=== PATIENT | female | born 1980 | race Caucasian/White ===

== ENCOUNTER 2018-08-25 18:01 | Inpatient (IN) | payer OTHER ==
[~2018-08-25 18:01] MED LIST: ISOVUE-370 76%-LOCM 1 ML ONE
[2018-08-25 19:11] LABS: BHCG - Serum Negative (NEGATIVE); Pregs Control Background? CLEAR/WHITE (CLR/WHITE); Pregs Control Bar Appear? YES (CONTROL BAR)
[2018-08-25] MEDS ORDERED: Fentanyl 100 MCG/2 ML VIAL ONE (19:40)
--- NOTE | 2018-08-25 19:42 | CT ---
CT Abdomen Pelvis W Con: 08/25/2018 6:30 PM CLINICAL INFORMATION: Ascites build up and jaundice COMPARISON: None. TECHNIQUE: Multiple contiguous axial images were obtained and a CT of the abdomen and pelvis with IV contrast. C oronal reformats were performed. FINDINGS: Lower Chest: within normal limits. Abdomen: Liver: within normal limits. No intrahepatic biliary dilatation. Bile Ducts: Normal caliber. Gallbladder: No calcified gallstones. Normal caliber wall. Fluid is seen adjacent to the gallbladder which likely represents ascites. Pancreas: within normal limits. Spleen: within normal limits. Adrenals: within normal limits. Kidneys: within normal limits. Pelvis: Reproductive Organs: No pelvic masses. Ureters: within normal limits. Bladder: within normal limits. Peritoneum: A moderate amount of ascites is seen. No free air is identified. Bowel: Normal caliber. Normal appendix Mesentery and Retroperitoneum: No enlarged mesenteric or retroperitoneal lymph nodes. Vessels: Normal. Abdominal Wall: within normal limits. Bones: Within normal limits IMPRESSION: Moderate ascites
[2018-08-25 21:14] LABS: Bilirubin Large (Negative); Blood, Urine Negative (Negative); Clarity CLEAR (Clear); Glucose, Urine (Dipstick) Negative (Negative); Leukocyte Negative (Negative); Nitrite Negative (Negative); Protein, Urine (Dipstick) Negative (Neg-Trace); Urobilinogen 0.2 mg/dL (0.2-1.0); pH, Urine 6.5 (5.0-9.0)
[2018-08-25 21:20] LABS: Specific Gravity, Urine Greater than 1.060 (1.002-1.036)
[2018-08-25 22:08] VITALS: BMI 24.4
[2018-08-25] MEDS ORDERED: Acetaminophen 325 MG TAB PO PRN (22:14)
[2018-08-25] MEDS ORDERED: Ondansetron ODT 4 MG TAB SL PRN (22:14)
[2018-08-25] MEDS ORDERED: Sodium Chloride 0.9% 1,000 ML IV SCH (22:14)
[2018-08-25] MEDS ORDERED: Ondansetron PF 4 MG/2 ML Vial IVP PRN (22:14)
[2018-08-25] MEDS ORDERED: NS 0.9% w/ 40 MEQ KCL 1,000 ML IV SCH (23:45)
[2018-08-26 00:31] LABS: ALT (SGPT) 36 U/L (8-55); AST (SGOT) 191 U/L (5-34); Albumin 2.6 g/dL (3.5-5.0); Alkaline Phosphatase 129 U/L (40-150); Anion Gap 13 mmol/L (10-20); BUN (Urea Nitrogen) 6 mg/dL (7.0-18.7); Calc. Creatinine Clearance 157 mL/min (70-130); Calcium 7.2 mg/dL (7.8-10.44); Carbon Dioxide 22 mmol/L (22-29); Chloride 96 mmol/L (98-107); Estimated GFR-MDRD Greater than 90; Glucose 83 mg/dL (70-105); Magnesium 1.9 mg/dL (1.6-2.6); Sodium 127 mmol/L (136-145)
[2018-08-26 00:32] LABS: Acetaminophen Less than 6.0 mcg/mL (10.0-30.0); Anion Gap 12 mmol/L (10-20); Carbon Dioxide 22 mmol/L (22-29); Chloride 96 mmol/L (98-107); Sodium 126 mmol/L (136-145)
[2018-08-26 00:34] LABS: Phosphorus 1.1 mg/dL (2.3-4.7)
[2018-08-26] MEDS ORDERED: Potassium Phosphate 15 MMOL in Sodium Chloride 0.9% 250 ML 250 ML IVPB SCH (00:45)
[2018-08-26] MEDS ORDERED: Sodium Chloride 0.9% 1,000 ML IV SCH (00:45)
[2018-08-26] MEDS ORDERED: Ondansetron PF 4 MG/2 ML Vial IVP PRN (00:47)
[2018-08-26] MEDS ORDERED: Ondansetron ODT 4 MG TAB PO PRN (00:47)
[2018-08-26] MEDS ORDERED: Calcium Carbonate 500 MG ChewTAB PO PRN (00:47)
[2018-08-26 00:52] LABS: Bilirubin, Direct Greater than 10.0 mg/dL (0.1-0.3); HBCM Index 0.07 S/CO (0-0.79); HBSAg Index 0.26 S/CO (0-0.99); Hep A IgM AB Non-Reactive (NonReactive); Hep A IgM S/CO 0.23 S/CO (0-0.79); Hep B Surf Ag Non-Reactive S/CO (NonReactive); Hep C IgG Ab Non-Reactive (NonReactive); Hep C Index 0.18 S/CO (0-0.79); Hepatitis B Core IgM Abs Non-Reactive (NonReactive)
--- NOTE | 2018-08-26 01:31 | HP ---
CHIEF COMPLAINT: Abdominal distention. HISTORY OF PRESENT ILLNESS: The patient is a 38-year-old female with alcohol abuse who presented to the emergency room with the above complaint. Over the last 1 or 2 weeks, the patient noticed yellow discoloration of her eyes. She also noticed gradual worsening abdominal distention. Over the last 2 to 3 days, the patient has generalized abdominal pain. She had 1 episode of vomiting today. She has intermittent nausea. No diarrhea reported. She had subjective fever. She takes Aleve on a daily basis. She had 1 loose stool this morning. She denies any hematemesis, melena, or hematochezia. She denies any IV drug abuse. PAST MEDICAL HISTORY: 1. Recent E coli UTI, on Bactrim. 2. Chronic alcoholism. PAST SURGICAL HISTORY: section. ALLERGIES: NO KNOWN DRUG ALLERGIES. CURRENT HOME MEDICATIONS: The patient is currently on: 1. Bactrim for recent UTI. 2. Aleve as needed. SOCIAL HISTORY: The patient drinks whiskey on a daily basis. She used to drink vodka in the past. Over the last 1 year, she is drinking heavily. She also smokes one pack a day. She also abuses cannabis. FAMILY HISTORY: Father had AK at the age of 57. REVIEW OF SYSTEMS: All other review of systems were reviewed and were found negative. PHYSICAL EXAMINATION: VITAL SIGNS: Temperature 98.8, respirations 22, pulse rate of 109, and blood pressure 127/74, O2 saturation of 97% on room air. GENERAL: A 38-year-old female with jaundice. She continues to have mild generalized abdominal discomfort. HEENT: Head; atraumatic, normocephalic. Sclerae icteric. Moist mucous membranes. No oral lesion. NECK: Supple. No JVD appreciated. No carotid bruit. LUNGS: Showed diminished air entry at bilateral bases. No wheezing, rales, or rhonchi. HEART: S1 and S2 present. Regular rate and rhythm. No rubs or gallops appreciated. ABDOMEN: Distended. There is generalized tenderness. No rebound or guarding. No costovertebral angle tenderness. Shifting dullness noted. No masses or pulsation. EXTREMITIES: Trace edema in bilateral lower extremity. SKIN: Warm and dry. LYMPH NODES: No palpable lymph nodes in the neck. Peripheral vascular radial pulses palpable bilaterally. MUSCULOSKELETAL: No joint swelling or tenderness. DIAGNOSTIC DATA: EKG by my review showed sinus rhythm with nonspecific ST-T wave changes. LABORATORY DATA: WBC 10.0, hemoglobin 11.4 with MCV of 119, hematocrit 34.5, platelet count 176. PT of 16.4, INR 1.3, PTT 34.6. Chemistry showed sodium 126, potassium 2.8, chloride 90, bicarb 26, BUN of 7, creatinine 0.6. Lactic acid 2.4, total bilirubin 17 with AST of 203, ALT 41, albumin 2.8. test was negative. Troponin was negative. Ammonia 54. Lactic acid 2.0. Repeat urinalysis today was negative for wbc's or bacteria. Urine drug screen last week was positive for cannabinoids. CT scan of the abdomen by my review showed moderate ascites. Liver appeared normal. Bile duct had normal caliber. IMPRESSION: 1. Acute hepatitis, most likely secondary to chronic alcoholism. 2. Abdominal distention/discomfort secondary to moderate ascites. 3. Electrolyte abnormalities. The patient has hyponatremia and hypokalemia. 4. Lactic acidosis due to reduced intravascular volume. 5. Hypoalbuminemia secondary to chronic alcohol abuse (moderate protein-calorie malnutrition). 6. Coagulopathy secondary to alcoholism. 7. Macrocytic anemia probably secondary to alcohol abuse. 8. Polysubstance abuse. (Tobacco, cannabinoid, and alcohol). 9. Recent urinary tract infection. The patient is on Bactrim. Her urinalysis is negative for urinary tract infection this admission. PLAN: The patient will be monitored on the medical floor. We will start her on prednisolone due to elevated risk function. We will replace electrolytes. Gentle hydration. We will check acute hepatitis profile. We will check acetaminophen level. Alcohol level was negative. Alcohol withdrawal scale. We will consult Gastroenterology. Thiamine, folic acid, multivitamin. Monitor for alcohol withdrawal. Clear liquid diet. Vital signs q.4 hourly. Plan of care was discussed with the patient in detail. She stated understanding. Job ID: [id number]
[2018-08-26] MEDS ORDERED: traMADol HCl 50 MG TAB PO SCH (02:45)
[2018-08-26] MEDS: pyridOXINE 50 MG (B6) TAB PO SCH (08:44)
[2018-08-26] MEDS: Propranolol 10 MG TAB PO SCH ×3 (08:44→19:58)
[2018-08-26] MEDS: Cyanocobalamin (Vitamin B-12) 1,000 MCG TAB PO SCH (08:44)
[2018-08-26] MEDS: Thiamine 100 MG TAB PO SCH (08:45)
[2018-08-26] MEDS: Folic Acid 1 MG TAB PO SCH (08:45)
[2018-08-26] MEDS: prednisoLONE 10 MG ODT TAB PO SCH (08:45)
[2018-08-26] MEDS: Multivit, Therapeutic 1 TAB PO SCH (08:45)
[2018-08-26] MEDS ORDERED: Famotidine 20 MG TAB PO SCH (09:00)
[2018-08-26] MEDS: Nicotine 14 MG PATCH TOP PRN (12:31)
--- NOTE | 2018-08-26 14:05 | PDOC.PN ---
- Subjective Encounter Start Date: 08/26/18 Encounter Start Time: 14:03 Subjective: Patient with chronic alcohol abuse admitted with increasing abd distension -: nausea and vomiting have subsided. -: For paracentesis tomorrow - Objective Resuscitation Status - Order Detail: 08/26/18 00:47 Resuscitation Status Routine Resuscitation Status: FULL: Full Resuscitation Vital Signs & Weight: Vital Signs (12 hours) Temp Pulse Resp BP BP BP Pulse Ox 08/26/18 11:27 98.1 F 90 18 117/84 97 08/26/18 08:00 102/71 98 08/26/18 07:37 98.2 F 82 20 102/71 98 08/26/18 04:00 98.3 F 96 18 99/68 99/68 96 Weight Weight 146 lb 12.8 oz Result Diagrams: 08/26/18 00:01 Phys Exam - Physical Examination icteric HEENT: PERRLA, moist MMs jaundice noted Neck: supple Respiratory: no rhonchi, clear to auscultation bilateral Cardiovascular: RRR, no significant murmur Gastrointestinal: soft, positive bowel sounds enlarged/distended Musculoskeletal: no edema, pulses present Neurological: non-focal, moves all 4 limbs Psychiatric: A&O x 3 Dx/Plan (1) Alcoholic hepatitis with ascites Code(s): K70.11 - ALCOHOLIC HEPATITIS WITH ASCITES Status: Acute (2) Abdominal distension Code(s): R14.0 - ABDOMINAL DISTENSION (GASEOUS) Status: Acute (3) Hyponatremia Code(s): E87.1 - HYPO-OSMOLALITY AND HYPONATREMIA Status: Acute (4) Hypokalemia Code(s): E87.6 - HYPOKALEMIA Status: Acute (5) Hypoalbuminemia Code(s): E88.09 - OTH DISORDERS OF PLASMA-PROTEIN METABOLISM, NEC Status: Acute (6) Macrocytic anemia Code(s): D53.9 - NUTRITIONAL ANEMIA, UNSPECIFIED Status: Acute (7) Chronic alcohol abuse Code(s): F10.10 - ALCOHOL ABUSE, UNCOMPLICATED Status: Acute (8) Hypophosphatemia Code(s): E83.39 - OTHER DISORDERS OF PHOSPHORUS METABOLISM Status: Acute - Plan DC IVF fluid. -: [place] sodium poor diet encouraged. -: Monitor CMP -: For paracentesis tomorrow. -: Monitor electrolytes and replete as needed. * .
--- NOTE | 2018-08-26 17:00 | CON ---
DATE OF CONSULTATION: 08/26/2018 REASON FOR CONSULTATION: Acute hepatitis. HISTORY OF PRESENT ILLNESS: Carolann Momin is a 38-year-old woman, who was admitted to the hospital late last night with acute hepatitis, which appears to be secondary to alcohol. She reports no significant past medical history. She drinks alcohol quite heavily. She says she has a half a pint of whiskey or vodka every day and this has been her pattern for a long time. She says she drinks hard liquor every day because it is cheaper than beer. She also does smoke cigarettes and uses marijuana. She says her sister has some form of liver disease, which she thinks is secondary to alcohol. About a week and a half ago, she started having progressive abdominal distention with associated discomfort. She also noticed that she was becoming jaundiced. She had an episode of vomiting yesterday and that finally prompted her presentation. She was found to have ascites based on CT scan, mild coagulopathy with INR 1.3, and total bilirubin elevation to 17. She says that over the past week since symptoms started, she stopped all alcohol use. She did have a urine culture about 5 days ago, which showed an E coli UTI, but she completed a course of Bactrim and urinalysis is now negative. Her primary complaint at this point is some discomfort in the lower sternal area associated with the abdominal distention. PAST MEDICAL HISTORY: 1. Recent E coli UTI, finished course of Bactrim, now appears resolved. 2. Chronic alcohol abuse. 3. Tobacco abuse. 4. Marijuana abuse. PAST SURGICAL HISTORY: section. ALLERGIES: NO KNOWN DRUG ALLERGIES. HOME MEDICATIONS: 1. Aleve as needed. 2. Bactrim for recent UTI. SOCIAL HISTORY: The patient would drink half a pint of whiskey or vodka on a daily basis. She has been drinking quite heavily for a long time. She also smokes 1 pack a day. She also abuses cannabis. FAMILY HISTORY: Father had AK at age 57. She says her sister has liver problems. She thinks secondary to alcohol. REVIEW OF SYSTEMS: Full review of systems including constitutional; head, eyes, ears, nose, and throat; GI; ; cardiovascular; respiratory; musculoskeletal; and neurologic systems are negative except as noted in the HPI. PHYSICAL EXAMINATION: VITAL SIGNS: Temperature 98.1, pulse 90, blood pressure 117/84, and oxygen saturation 97% on room air. GENERAL: Jaundiced 38-year-old woman, lying in bed comfortably, in no distress. MENTAL: She is alert and oriented. She is pleasant, conversational. She can give details about her symptoms and recent history. SKIN: She is jaundiced. No rashes were palpable. EYES: Scleral icterus is apparent. Extraocular movements intact. ENT: Mucous membranes moist. No oral lesions. LYMPH: No submandibular or supraclavicular lymphadenopathy. THYROID: Nontender to palpation. HEART: Regular rate and rhythm. LUNGS: Clear to auscultation bilaterally. ABDOMEN: Distended with ascites, somewhat tense. Bowel sounds are present throughout. There is minimal tenderness to palpation of the abdomen throughout. No guarding or rebound tenderness. EXTREMITIES: No peripheral edema. VESSELS: Radial pulses 2+ bilaterally. NEURO: Cranial nerves II through XII intact bilaterally. No focal deficits. LABORATORY STUDIES: WBC 10, hemoglobin 11.4, platelets 176, and MCV elevated to 119. INR 1.3, PT 16.4. Sodium 126, potassium 4.0, BUN 6, creatinine 0.52, and glucose 83. Serum test negative. Ammonia is 84. Total bilirubin 17, direct bilirubin greater than 10, alkaline phosphatase normal at 129, AST elevated to 191 with a normal ALT of 36. Serum alcohol level is negative. Tylenol level is negative. Urinalysis is also negative, tested yesterday. IMAGING STUDIES: CT of the abdomen and pelvis demonstrates moderate ascites, otherwise normal exam with normal appearing liver, gallbladder, and bile ducts. Normal pancreas. No lymphadenopathy. ASSESSMENT AND PLAN: 1. Acute alcoholic hepatitis, severe. 2. Ascites, new onset. The patient's discriminant function calculates out to 32.6, which does make this a severe episode of alcoholic hepatitis. Prognosis is guarded to poor, depending on how she does over the next few days. We will expand the laboratory workup to include autoimmune markers, ceruloplasmin, and iron studies. Note, the negative viral hepatitis serologies. I do suspect this is all secondary to alcohol abuse. NSAIDs need to be stopped. Obviously, the most important thing for her going forward is going to be complete abstinence from alcohol and I emphasized the gravity of the situation to the patient. Need to trend CMP and INR daily. She has only a mild coagulopathy and preserved renal function at this time. However, if we start to see deterioration in lab values, this will portend a much poor prognosis. She also will need a diagnostic paracentesis and send fluid for cell count, differential, culture, and albumin. I agree with measures already taken including the steroids with prednisolone 40 mg daily. This will need to be continued for at least 28 days, depending on her clinical course, with a tapering course thereafter. Also, agree with the lactulose that has been initiated. She is not overtly encephalopathic at this time. Also, agree with ulcer prophylaxis with Protonix 40 mg daily, which has already been started. The patient can start with a low-sodium diet. Nutrition is going to be very important to her recovery, so I would also recommend nutritional supplementation with Ensure twice per day. The patient is probably not a transplant candidate secondary to acute alcoholic hepatitis and ongoing drug abuse. However, if she has clinical or laboratory deterioration over the next few days, we would certainly consider requesting transfer to a liver transplant center for further management evaluation. Thank you for the consultation. Please call anytime with questions or concerns. Job ID: [id number]
[2018-08-26] MEDS: Lorazepam 2 MG/ML VIAL SLOW IVP PRN (20:00)
[2018-08-27 07:56] LABS: INR-International Normal Ratio 1.4; Prothrombin Time 16.8 SEC (12.0-14.7)
[2018-08-27] MEDS: Folic Acid 1 MG TAB PO SCH (08:32)
[2018-08-27] MEDS: Multivit, Therapeutic 1 TAB PO SCH (08:32)
[2018-08-27] MEDS: Propranolol 10 MG TAB PO SCH ×3 (08:32→18:54)
[2018-08-27] MEDS: Thiamine 100 MG TAB PO SCH (08:32)
[2018-08-27] MEDS: pyridOXINE 50 MG (B6) TAB PO SCH (08:32)
[2018-08-27] MEDS: prednisoLONE 10 MG ODT TAB PO SCH (08:32)
[2018-08-27] MEDS: Cyanocobalamin (Vitamin B-12) 1,000 MCG TAB PO SCH (08:32)
[2018-08-27 09:00] LABS: ALT (SGPT) 46 U/L (8-55); AST (SGOT) 189 U/L (5-34); Albumin 2.7 g/dL (3.5-5.0); Alkaline Phosphatase 145 U/L (40-150); Anion Gap 10 mmol/L (10-20); BUN (Urea Nitrogen) 7 mg/dL (7.0-18.7); Bilirubin, Total 17.5 mg/dL (0.2-1.2); Calc. Creatinine Clearance 149 mL/min (70-130); Calcium 8.3 mg/dL (7.8-10.44); Carbon Dioxide 24 mmol/L (22-29); Chloride 95 mmol/L (98-107); Estimated GFR-MDRD Greater than 90; Globulin 2.9 g/dL (2.4-3.5); Glucose 70 mg/dL (70-105); Iron 98 ug/dL (50-170); Iron Binding Capacity, Total 148 mcg/dL (265-497); Magnesium 1.6 mg/dL (1.6-2.6); Phosphorus 1.5 mg/dL (2.3-4.7); Potassium 3.8 mmol/L (3.5-5.1); Protein, Total 5.6 g/dL (6.0-8.3); Sodium 125 mmol/L (136-145)
--- NOTE | 2018-08-27 10:48 | PRG ---
DATE OF SERVICE: 08/27/2018 SUBJECTIVE: Ms. Momin is feeling a bit better today. She says she has more energy and more appetite. We are awaiting ultrasound-guided paracentesis, I think set up for later today. No confusion. Minimal abdominal discomfort. Abdominal distention persists. OBJECTIVE: VITAL SIGNS: Temperature 97.9, pulse 82, blood pressure 101/74, and oxygen saturation 100% on room air. GENERAL: Jaundiced. No acute distress. HEART: Regular rate and rhythm. LUNGS: Clear to auscultation bilaterally. ABDOMEN: Still distended with ascites. Bowel sounds present. Soft. Mild tenderness to palpation throughout the abdomen, but no guarding or rebound tenderness. EXTREMITIES: No peripheral edema. LABORATORY STUDIES: INR marginally up to 1.4. BUN 7, creatinine stable at 0.55, sodium 125, potassium 3.8, phosphorus 1.5, calcium 8.3. Ferritin 586.83, iron 98, and TIBC 148. Total bilirubin up marginally to 17.5. AST down marginally to 189, ALT 46, alkaline phosphatase 145, and albumin 2.7. Total IgG is normal at 935. Viral hepatitis serologies are negative. Other labs are all pending including alpha-1 antitrypsin, STEPHANIE, ASMA, AMA, ceruloplasmin, and paracentesis fluid studies. ASSESSMENT AND PLAN: 1. Acute alcoholic hepatitis, severe. 2. Ascites, new onset. The patient's labs are marginally up, but essentially stable today, still need to trend CMP and INR daily for now. Awaiting results of further liver lab workup as well as diagnostic paracentesis today. Continue with prednisolone 40 mg daily and ulcer prophylaxis with Protonix 40 mg daily. After her paracentesis, she needs to continue her low-sodium diet. Given her good renal function, I will go ahead and add diuretics as well. We will start her on Lasix 40 mg daily and spironolactone 100 mg daily. Job ID: [id number]
[2018-08-27] MEDS: Furosemide 40 MG TAB PO SCH (10:56)
[2018-08-27] MEDS: Spironolactone 100 MG TAB PO SCH (10:56)
--- NOTE | 2018-08-27 11:56 | ULT ---
Ultrasound-guided paracentesis: HISTORY: Symptomatic ascites FINDINGS: Informed consent obtained prior to the procedure. Preprocedural imaging demonstrated signif icant ascites throughout the abdomen and pelvis. Right lower quadrant prepped and draped in normal sterile fashion and anesthetized with 1% buffered l idocaine. With direct sonographic guidance, 20-gauge needle is advanced into the ascites and removal of the sty let yielded yellow fluid. 20 mL were removed. The patient tolerated the procedure well. No postprocedural complications. Specimen was sent to laboratory for analysis. IMPRESSION: Successful ultrasound-guided paracentesis yielding 20 mL of yellow ascites. Laboratory results are pending.
[2018-08-27] MEDS ORDERED: Albumin 25% 25 GM/100 ML BOT IVPB SCH (12:15)
--- NOTE | 2018-08-27 12:25 | PDOC.PN ---
- Subjective Encounter Start Date: 08/27/18 Encounter Start Time: 12:24 Subjective: No new problem -: had diagnostic Paracentesis earlier today. -: BP went down with SBP in 80's hence diuretic and inderal were held. - Objective Resuscitation Status - Order Detail: 08/26/18 00:47 Resuscitation Status Routine Resuscitation Status: FULL: Full Resuscitation Vital Signs & Weight: Vital Signs (12 hours) Temp Pulse Resp BP BP Pulse Ox 08/27/18 10:30 98.0 F 85 18 84/57 L 99 08/27/18 07:59 99 08/27/18 04:00 97.9 F 82 18 101/74 101/74 100 Weight Weight 146 lb 12.8 oz I&O: 08/26/18 08/27/18 08/28/18 06:59 06:59 06:59 Intake Total 2980 Balance 2980 Result Diagrams: 08/27/18 07:24 Phys Exam - Physical Examination icteric HEENT: PERRLA, moist MMs Neck: no JVD, supple Respiratory: no wheezing, no rales, no rhonchi, clear to auscultation bilateral Cardiovascular: RRR, no significant murmur Gastrointestinal: soft, non-tender, positive bowel sounds enlarged Musculoskeletal: no edema, pulses present Neurological: non-focal, moves all 4 limbs Psychiatric: A&O x 3 Dx/Plan (1) Alcoholic hepatitis with ascites Code(s): K70.11 - ALCOHOLIC HEPATITIS WITH ASCITES Status: Acute (2) Abdominal distension Code(s): R14.0 - ABDOMINAL DISTENSION (GASEOUS) Status: Acute (3) Hyponatremia Code(s): E87.1 - HYPO-OSMOLALITY AND HYPONATREMIA Status: Acute (4) Hypokalemia Code(s): E87.6 - HYPOKALEMIA Status: Acute (5) Hypoalbuminemia Code(s): E88.09 - OTH DISORDERS OF PLASMA-PROTEIN METABOLISM, NEC Status: Acute (6) Macrocytic anemia Code(s): D53.9 - NUTRITIONAL ANEMIA, UNSPECIFIED Status: Acute (7) Chronic alcohol abuse Code(s): F10.10 - ALCOHOL ABUSE, UNCOMPLICATED Status: Acute (8) Hypophosphatemia Code(s): E83.39 - OTHER DISORDERS OF PHOSPHORUS METABOLISM Status: Acute (9) Hypotension Status: Acute - Plan Will give IV albumin bolus x 1 -: Hold diuretic, inderal till BP improve. -: Reduce free water intake, -: Awaiting ascitic fluid analysis. -: Continue steroid and multivitamins. Follow CMP * .
[2018-08-27 13:59] LABS: BF Color Yellow; BF RBC Count - Manual 12 /cumm; BF WBC/Nonhematics Ct. - Manua 16 /cumm; Body Fluid Source Ascites Body Fluid; Clarity Clear (Clear); Tube # EDTA
[2018-08-27 14:07] LABS: BF Segmented Neutrophils 14 %; Cell Count Non Hematic 60 %; Eosinophils 1 %; Lymphocytes 24 %
[2018-08-27] MEDS: PHOS-NAK 1 PKT PACK PO SCH ×2 (14:19→20:04)
[2018-08-27] MEDS: Nicotine 14 MG PATCH TOP PRN (18:49)
[2018-08-27] MEDS: Lorazepam 2 MG/ML VIAL SLOW IVP PRN (20:06)
[2018-08-28 05:43] LABS: ALT (SGPT) 46 U/L (8-55); AST (SGOT) 190 U/L (5-34); Albumin 2.7 g/dL (3.5-5.0); Alkaline Phosphatase 124 U/L (40-150); Anion Gap 12 mmol/L (10-20); BUN (Urea Nitrogen) 8 mg/dL (7.0-18.7); Calc. Creatinine Clearance 174 mL/min (70-130); Calcium 8.2 mg/dL (7.8-10.44); Carbon Dioxide 22 mmol/L (22-29); Chloride 99 mmol/L (98-107); Estimated GFR-MDRD Greater than 90; Globulin 2.4 g/dL (2.4-3.5); Glucose 81 mg/dL (70-105); Magnesium 1.5 mg/dL (1.6-2.6); Phosphorus 2.5 mg/dL (2.3-4.7); Potassium 3.9 mmol/L (3.5-5.1); Protein, Total 5.1 g/dL (6.0-8.3); Sodium 129 mmol/L (136-145)
[2018-08-28 05:44] LABS: INR-International Normal Ratio 1.4
[2018-08-28] MEDS: pyridOXINE 50 MG (B6) TAB PO SCH (07:52)
[2018-08-28] MEDS: Propranolol 10 MG TAB PO SCH (07:52)
[2018-08-28] MEDS: Thiamine 100 MG TAB PO SCH (07:52)
[2018-08-28] MEDS: PHOS-NAK 1 PKT PACK PO SCH ×3 (07:52→20:28)
[2018-08-28] MEDS: Folic Acid 1 MG TAB PO SCH (07:53)
[2018-08-28] MEDS: Multivit, Therapeutic 1 TAB PO SCH (07:53)
[2018-08-28] MEDS: Cyanocobalamin (Vitamin B-12) 1,000 MCG TAB PO SCH (07:57)
--- NOTE | 2018-08-28 10:05 | PRG ---
DATE OF SERVICE: 08/28/2018 SUBJECTIVE: Ms. Momin is feeling pretty well. Abdominal distention and associated discomfort persist. She has some discomfort in the lower ribcage. She is able to ambulate just fine. She is able to eat just fine. Paracentesis went well yesterday. She did not get her Lasix or spironolactone yesterday due to low blood pressure. OBJECTIVE: VITAL SIGNS: Temperature 97.7, pulse 91, blood pressure 112/78, and 99% oxygen saturation on room air. GENERAL: Jaundiced. No acute distress. HEART: Regular rate and rhythm. LUNGS: Clear to auscultation bilaterally. ABDOMEN: Distended with ascites, not tense. Bowel sounds are present. Soft. Some mild diffuse tenderness to palpation, but no guarding or rebound tenderness. EXTREMITIES: No peripheral edema. LABORATORY STUDIES: INR is stable at 1.4. Sodium 129, potassium 3.9, BUN 8, and creatinine 0.47. Total bilirubin has declined from 17.5, now down to 13.0, AST stable at 190, ALT 46, alkaline phosphatase 124, and albumin is 2.7. Ferritin is elevated to 586.83, iron 98, and TIBC 148. Ascites fluid came back only 16 WBCs. Fluid albumin is 0.9, so SAAG calculates out to 1.8. Total IgG is normal at 935. Viral hepatitis serology is negative. ASSESSMENT AND PLAN: 1. Acute alcoholic hepatitis, severe, but significant improvement in laboratories this morning. 2. Ascites, new onset, secondary to alcoholic hepatitis. I am quite pleased with the downtrend of the patient's bilirubin today. Her discriminant function on admission calculated out to 32.6, but now is down to 22.2. This portends a better prognosis. We will continue with the prednisolone 40 mg daily for 28 days followed by taper. I advised her to continue with her low-sodium diet. She did not get diuretics yesterday due to low blood pressures. I am going to stop the propranolol that was started on admission. Give Lasix 40 mg and spironolactone 100 mg daily, to hopefully hasten resolution of the ascites. Note, she has great renal function. I would like to see the labs continued to downtrend tomorrow. Job ID: [id number] [facility]
[2018-08-28] MEDS ORDERED: Clopidogrel Bisulfate 75 MG TAB ONE (10:39)
[2018-08-28 11:19] LABS: ANA Symphony (Qualitative) Negative (Negative); ANA Symphony (Quantitative) 0.1 Ratio (< 0.7 Negative); EliA Vaculitis New Method **** NEW METHOD ****; Mitochondrial Ab 0.5 U/mL (<4 Negative); dsDNA IgG Antibody 0.5 IU/mL (<10 Negative)
--- NOTE | 2018-08-28 12:22 | PDOC.PN ---
- Subjective Encounter Start Date: 08/28/18 Encounter Start Time: 12:20 Subjective: mild abd discomfort - Objective Resuscitation Status - Order Detail: 08/26/18 00:47 Resuscitation Status Routine Resuscitation Status: FULL: Full Resuscitation MAR Reviewed: Yes Vital Signs & Weight: Vital Signs (12 hours) Temp Pulse Resp BP BP BP Pulse Ox 08/28/18 12:03 83/56 L 08/28/18 11:44 98.1 F 92 18 83/56 L 96 08/28/18 08:02 112/78 08/28/18 07:49 97.7 F 91 20 112/78 99 08/28/18 07:48 99 08/28/18 04:00 98 F 81 18 93/61 93/61 99 Weight Weight 146 lb 12.8 oz I&O: 08/27/18 08/28/18 08/29/18 06:59 06:59 06:59 Intake Total 2980 1661 Balance 2980 1661 Result Diagrams: 08/28/18 05:00 Phys Exam - Physical Examination jaundice Respiratory: clear to auscultation bilateral Cardiovascular: RRR, no significant murmur Gastrointestinal: soft, positive bowel sounds minimal general tenderness Musculoskeletal: no edema Dx/Plan (1) Abdominal distension Code(s): R14.0 - ABDOMINAL DISTENSION (GASEOUS) Status: Acute (2) Alcoholic hepatitis with ascites Code(s): K70.11 - ALCOHOLIC HEPATITIS WITH ASCITES Status: Acute (3) Chronic alcohol abuse Code(s): F10.10 - ALCOHOL ABUSE, UNCOMPLICATED Status: Acute (4) Hypoalbuminemia Code(s): E88.09 - OTH DISORDERS OF PLASMA-PROTEIN METABOLISM, NEC Status: Acute (5) Hypokalemia Code(s): E87.6 - HYPOKALEMIA Status: Acute (6) Hyponatremia Code(s): E87.1 - HYPO-OSMOLALITY AND HYPONATREMIA Status: Acute (7) Hypophosphatemia Code(s): E83.39 - OTHER DISORDERS OF PHOSPHORUS METABOLISM Status: Acute (8) Macrocytic anemia Code(s): D53.9 - NUTRITIONAL ANEMIA, UNSPECIFIED Status: Acute - Plan cont glucocorticoids -: cont vitamins -: cont spironolactone -: serial lab -: discuss with GI * .
[2018-08-28] MEDS ORDERED: Acetaminophen 325 MG TAB PO PRN (12:30)
[2018-08-28] MEDS: Spironolactone 100 MG TAB PO SCH (13:56)
[2018-08-28] MEDS: Furosemide 40 MG TAB PO SCH (13:56)
[2018-08-28] MEDS: prednisoLONE 10 MG ODT TAB PO SCH (14:59)
[2018-08-28] MEDS ORDERED: Ibuprofen 200 MG TAB PO PRN (15:23)
[2018-08-28] MEDS: Lorazepam 2 MG/ML VIAL SLOW IVP PRN (20:28)
[2018-08-29] MEDS: pyridOXINE 50 MG (B6) TAB PO SCH (08:02)
[2018-08-29] MEDS: Multivit, Therapeutic 1 TAB PO SCH (08:02)
[2018-08-29] MEDS: prednisoLONE 10 MG ODT TAB PO SCH (08:02)
[2018-08-29] MEDS: Folic Acid 1 MG TAB PO SCH (08:02)
[2018-08-29] MEDS: Cyanocobalamin (Vitamin B-12) 1,000 MCG TAB PO SCH (08:02)
[2018-08-29] MEDS: Thiamine 100 MG TAB PO SCH (08:02)
[2018-08-29] MEDS: PHOS-NAK 1 PKT PACK PO SCH ×2 (08:03→14:48)
[2018-08-29 08:28] LABS: INR-International Normal Ratio 1.3; Prothrombin Time 16.5 SEC (12.0-14.7)
--- NOTE | 2018-08-29 10:35 | PDOC.PN ---
- Subjective Encounter Start Date: 08/29/18 Encounter Start Time: 10:34 Subjective: legs swelling - Objective Resuscitation Status - Order Detail: 08/26/18 00:47 Resuscitation Status Routine Resuscitation Status: FULL: Full Resuscitation MAR Reviewed: Yes Vital Signs & Weight: Vital Signs (12 hours) Temp Pulse Resp BP BP Pulse Ox 08/29/18 07:57 110/76 97 08/29/18 07:53 98.2 F 85 20 110/76 97 08/29/18 04:00 97.9 F 78 16 104/71 104/71 97 08/29/18 00:00 98.0 F 84 16 106/71 106/71 96 Weight Weight 146 lb 12.8 oz I&O: 08/28/18 08/29/18 08/30/18 06:59 06:59 06:59 Intake Total 1661 1240 Balance 1661 1240 Result Diagrams: 08/28/18 05:00 Phys Exam - Physical Examination Neck: no JVD Respiratory: clear to auscultation bilateral Cardiovascular: RRR, no significant murmur Gastrointestinal: soft hepatomegaly Musculoskeletal: edema present Dx/Plan (1) Abdominal distension Code(s): R14.0 - ABDOMINAL DISTENSION (GASEOUS) Status: Acute (2) Alcoholic hepatitis with ascites Code(s): K70.11 - ALCOHOLIC HEPATITIS WITH ASCITES Status: Acute (3) Chronic alcohol abuse Code(s): F10.10 - ALCOHOL ABUSE, UNCOMPLICATED Status: Acute (4) Hypoalbuminemia Code(s): E88.09 - OTH DISORDERS OF PLASMA-PROTEIN METABOLISM, NEC Status: Acute (5) Hypokalemia Code(s): E87.6 - HYPOKALEMIA Status: Acute (6) Hyponatremia Code(s): E87.1 - HYPO-OSMOLALITY AND HYPONATREMIA Status: Acute (7) Hypophosphatemia Code(s): E83.39 - OTHER DISORDERS OF PHOSPHORUS METABOLISM Status: Acute (8) Macrocytic anemia Code(s): D53.9 - NUTRITIONAL ANEMIA, UNSPECIFIED Status: Acute - Plan rpt cbc, cmp-review with GI -: cont prednisone, spironolactone * .
--- NOTE | 2018-08-29 10:47 | PDOC.PN ---
- Subjective Encounter Start Date: 08/29/18 Encounter Start Time: 10:45 Subjective: doing well - Objective Resuscitation Status - Order Detail: 08/26/18 00:47 Resuscitation Status Routine Resuscitation Status: FULL: Full Resuscitation MAR Reviewed: Yes Vital Signs & Weight: Vital Signs (12 hours) Temp Pulse Resp BP BP Pulse Ox 08/29/18 07:57 110/76 97 08/29/18 07:53 98.2 F 85 20 110/76 97 08/29/18 04:00 97.9 F 78 16 104/71 104/71 97 08/29/18 00:00 98.0 F 84 16 106/71 106/71 96 Weight Weight 146 lb 12.8 oz I&O: 08/28/18 08/29/18 08/30/18 06:59 06:59 06:59 Intake Total 1661 1240 Balance 1661 1240 Result Diagrams: 08/28/18 05:00 Phys Exam - Physical Examination Neck: no JVD Respiratory: clear to auscultation bilateral Cardiovascular: RRR, no significant murmur Gastrointestinal: soft, positive bowel sounds Musculoskeletal: no edema Dx/Plan (1) Abdominal distension Code(s): R14.0 - ABDOMINAL DISTENSION (GASEOUS) Status: Acute (2) Alcoholic hepatitis with ascites Code(s): K70.11 - ALCOHOLIC HEPATITIS WITH ASCITES Status: Acute (3) Chronic alcohol abuse Code(s): F10.10 - ALCOHOL ABUSE, UNCOMPLICATED Status: Acute (4) Hypoalbuminemia Code(s): E88.09 - OTH DISORDERS OF PLASMA-PROTEIN METABOLISM, NEC Status: Acute (5) Hypokalemia Code(s): E87.6 - HYPOKALEMIA Status: Acute (6) Hyponatremia Code(s): E87.1 - HYPO-OSMOLALITY AND HYPONATREMIA Status: Acute (7) Hypophosphatemia Code(s): E83.39 - OTHER DISORDERS OF PHOSPHORUS METABOLISM Status: Acute (8) Macrocytic anemia Code(s): D53.9 - NUTRITIONAL ANEMIA, UNSPECIFIED Status: Acute - Plan CK dropping, renal fcn stable -: cont iv fluida, serial lab * .
[2018-08-29 11:15] LABS: Alpha-1-Antitrypsin 270 mg/dL (90-200)
[2018-08-29 12:13] LABS: Smooth Muscle Total ABS 5 Units (0-19)
[2018-08-29] MEDS: Furosemide 40 MG TAB PO SCH (12:15)
[2018-08-29] MEDS: Spironolactone 100 MG TAB PO SCH (12:15)
[2018-08-29 12:17] LABS: ALT (SGPT) 73 U/L (8-55); AST (SGOT) 240 U/L (5-34); Albumin 3.2 g/dL (3.5-5.0); Alkaline Phosphatase 168 U/L (40-150); Anion Gap 12 mmol/L (10-20); BUN (Urea Nitrogen) 9 mg/dL (7.0-18.7); Bilirubin, Total 14.2 mg/dL (0.2-1.2); Calc. Creatinine Clearance 157 mL/min (70-130); Calcium 9.3 mg/dL (7.8-10.44); Carbon Dioxide 25 mmol/L (22-29); Chloride 97 mmol/L (98-107); Estimated GFR-MDRD Greater than 90; Glucose 96 mg/dL (70-105); Potassium 4.1 mmol/L (3.5-5.1); Protein, Total 6.2 g/dL (6.0-8.3); Sodium 130 mmol/L (136-145)
[2018-08-29 12:27] LABS: #Eosinphils 0.1 thou/uL (0.0-0.7); #Lymphocytes 1.8 thou/uL (1.20-3.40); #Monocytes 0.4 thou/uL (0.11-0.59); #Neutrophils 14.5 thou/uL (1.40-6.50); %Basophils 0.1 % (0.0-1.0); %Eosinophils 0.6 % (0.0-10.0); %Lymphocytes 10.5 % (21.0-51.0); %Monocytes 2.2 % (0.0-10.0); %Neutrophils 86.6 % (42.0-75.0); Hemoglobin 12.4 g/dL (12.0-16.0); MDiff Complete? YES; Macrocytosis MODERATE=16-30 cells (100X) (0-5/hpf); Mean Corpuscular HGB CONC 32.8 g/dL (32.0-36.0); Mean Platelet Volume 9.4 fL (7.4-10.4); Platelet Count 259 thou/uL (130-400); Platelet Morphology Comment Appears Adequate; RBC Distribution Width 14.2 % (11.5-14.5); Red Blood Cell (RBC) Count 3.11 mill/uL (4.20-5.40); Stomatocytes MODERATE= 6-15 cells (100X) (0-1/hpf); Target Cells SLIGHT = 2-5 cells (100X) (0-1/hpf); White Blood Cell (WBC) Count 16.8 thou/uL (4.8-10.8)
--- NOTE | 2018-08-29 13:47 | PRG ---
DATE OF SERVICE: 08/29/2018 SUBJECTIVE: Ms. Momin says she is feeling better. She feels like her abdominal distention has improved. She has good appetite and good energy. She is wanting to be discharged from the hospital if possible. OBJECTIVE: VITAL SIGNS: Temperature 98.5, pulse 85, blood pressure 103/67, and 97% oxygen saturation on room air. GENERAL: Jaundiced. In no acute distress. MENTAL: She is alert and fully oriented. No signs of encephalopathy. HEART: Regular rate and rhythm. LUNGS: Clear to auscultation bilaterally. ABDOMEN: Distended with ascites, not tense. Bowel sounds present. Soft, nontender to palpation. EXTREMITIES: No peripheral edema. LABORATORY STUDIES: WBC 16.8, hemoglobin 12.4, and platelets 259. INR slightly down to 1.3. Sodium 130, potassium 4.1, BUN 9, creatinine 0.52, total bilirubin marginally up to 14.2. AST 240, ALT 73, alkaline phosphatase 168. Alpha-1 antitrypsin level is 270 with normal MM phenotype. Ceruloplasmin is 40.3, which is satisfactory. STEPHANIE is negative. AMA is negative. Antismooth muscle antibody is also negative. ASSESSMENT AND PLAN: 1. Alcoholic hepatitis, stable over the past 3 days since admission. 2. Ascites. Overall, I am encouraged by the patient's marginal but definite improvement and laboratory studies since admission. The downtrending INR is a good sign. The patient is really wanting to be discharged from the hospital today. I think that is fine as long as she has a good close outpatient followup. We will plan to see her back in the GI Clinic in the next 1 to 2 weeks with preclinic labs including CBC, CMP, and PT/INR. I want her to continue on the diuretics as well as a low-sodium diet. She needs to continue on the prednisolone 40 mg daily for now. Of utmost importance is that she completely abstain from all alcohol going forward. She assures me that this is what she will do. Otherwise, no barriers to hospital discharge from a GI perspective. Job ID: [id number]
--- NOTE | 2018-08-29 14:27 | PDOC.EVN ---
Event Note - Event Note Event Note: LFTs adverse, will discuss with GI
--- NOTE | 2018-08-29 15:41 | DIS ---
DATE OF ADMISSION: 08/25/2018 DATE OF DISCHARGE: 08/29/2018 PRIMARY CARE PROVIDER: [facility]. DISPOSITION: Discharged home. FINAL DIAGNOSES: Acute severe alcoholic hepatitis, ascites, chronic alcohol abuse, coagulopathy secondary to hepatic insufficiency, jaundice, hypophosphatemia, hyponatremia, hypoalbuminemia. DISCHARGE MEDICATIONS: 1. Prednisolone 40 mg a day for a month. 2. Thiamine 100 mg a day. 3. Aldactone 100 mg a day. 4. Multivitamin one a day. 5. Furosemide 40 mg a day. 6. Folic acid 1 mg a day. ALLERGIES: NO KNOWN DRUG ALLERGIES. PENDING AT TIME OF DISCHARGE: Nothing. CODE STATUS: Full. DIET: As tolerated. CONSULTATIONS: Dr. Trey Pop, Gastroenterology. PROCEDURES: Paracentesis with ultrasound Dr. Nash Jensen, 08/27/2018. HOSPITAL COURSE: The patient was admitted to [facility] through [facility] with abdominal swelling, some generalized abdominal discomfort, nausea. The patient admits to daily heavily consumption of alcohol. Her studies were impressive. INR was elevated at 1.3. Sodium was 126, potassium 28, bilirubin 17, elevated LFTs. CT showed ascites and a normal-appearing liver. She was seen by Dr. Pop, put on oral prednisolone, thiamine, folic acid etc,. Lasix 40 a day, spironolactone 100 a day. Her laboratory studies have been monitored. The patient is severely jaundiced with mild hepatomegaly. Her INRs 3 days running at 1.4, 1.4, 1.4. Her sodium is increased to 130 from 125. Her bilirubin 17.5, 13.0, 14.2. She currently feels well, wishes to go home. I have discussed her case with Dr. Pop. He is agreeable that she could be discharged. Follow up with him in 1 to 2 weeks. Prescriptions have been written. She has been cautioned about drinking alcohol. She has been advised to return to the emergency department, if she gets worse. Job ID: [id number]
[2018-08-29 17:07] VITALS: BP 104/61; TEMP 97.9
== END 2018-08-29 16:39 | disposition home or self-care (01) | DRG 433 ==
LOC: ERS 18:01 → 2SW 22:04 → OBSVTOIN 22:04 → T4-B 08-26 00:49
PROVIDERS: ADMIT Internal Medicine; ATTEND Internal Medicine
PROC: 0W9G30Z Drainage of Peritoneal Cavity with Drainage Device, Percutaneous Approach (ICD-10-PCS; principal; 2018-08-27)
DX: K70.11 Alcoholic hepatitis with ascites (principal); E87.1 Hypo-osmolality and hyponatremia; E87.2 Acidosis; D68.4 Acquired coagulation factor deficiency; F17.210 Nicotine dependence, cigarettes, uncomplicated; E87.6 Hypokalemia; E88.09 Other disorders of plasma-protein metabolism, not elsewhere classified; F11.10 Opioid abuse, uncomplicated; D53.9 Nutritional anemia, unspecified; F10.10 Alcohol abuse, uncomplicated; E83.39 Other disorders of phosphorus metabolism; Z79.899 Other long term (current) drug therapy; Z98.890 Other specified postprocedural states; Z72.89 Other problems related to lifestyle
CPT/HCPCS: 36415; 49083; 74177; 80053; 80074; 80307; 81003; 82042; 82103; 82104; 82140; 82390; 82728; 83516; 83540; 83550; 83605; 83735; 84100; 84703; 85025; 85060; 85610; 86038; 86225; 87070; 87086; 87205; 89051; 93005; 96361; 96374; J2060; J3010; J7050; J7510; P9047; Q9966

== ENCOUNTER 2024-07-19 11:03 | Outpatient (CLI) | payer OTHER | END 2024-07-19 11:04 | disposition home or self-care (01) | LOC: BICMAMMO 11:03 | PROVIDERS: ATTEND Nurse Practitioner Family | DX: Z12.31 Encounter for screening mammogram for malignant neoplasm of breast (principal); R92.1 Mammographic calcification found on diagnostic imaging of breast | CPT/HCPCS: 77063; 77067 ==

== ENCOUNTER 2025-02-05 08:07 | Outpatient (CLI) | payer OTHER | END 2025-02-05 08:08 | disposition home or self-care (01) | LOC: ULT 08:07 | PROVIDERS: ATTEND Internal Medicine | DX: I85.01 Esophageal varices with bleeding (principal); K70.30 Alcoholic cirrhosis of liver without ascites; K80.20 Calculus of gallbladder without cholecystitis without obstruction; Z95.828 Presence of other vascular implants and grafts | CPT/HCPCS: 76700 ==